=== PATIENT | male | born 1995 | race Caucasian/White ===

== ENCOUNTER 2023-10-16 20:04 | Emergency (ER) | payer SELFPAY ==
[2023-10-16 20:09] VITALS: BP 137/80; PULSE 110; RESP 16; TEMP 37.2; O2SAT 97; BMI 40.7
--- NOTE | 2023-10-16 20:18 | PC.NURSE ---
Area of concern started at top and inside buttock crack and extends into the lower back and to the right. Area red, raised and firm to the touch.
[2023-10-16 20:20] VITALS: O2SAT 97
--- NOTE | 2023-10-16 20:41 | ED.GENADUL1 ---
HPI - General Adult General Chief complaint: Skin/Abscess/Foreign Body Stated complaint: ABSCESS Time Seen by Provider: 10/16/23 20:10 Source: patient Mode of arrival: walk-in History of Present Illness HPI narrative: 28-year-old male with a history of pilonidal abscess presents today with recurrence. Patient states several years ago he had the surgical procedure try to prevent further recurrences. States she's had three or four since that time. States this episode began about three or four days ago. He has a 4 x 5 cm area of fluctuance superior to the buttock crease. Recent afebrile. He does not appear toxic. Related Data Previous Rx's Medication Instructions Recorded cephalexin 500 mg capsule 500 mg PO BID 10 days #20 caps 10/16/23 sulfamethoxazole 800 1 tab PO Q12H 10 days #20 tabs 10/16/23 mg-trimethoprim 160 mg tablet (Bactrim DS) Allergies Allergy/AdvReac Type Severity Reaction Status Date / Time No Known Drug Allergies Allergy Verified 10/16/23 20:13 Review of Systems ROS Narrative All Systems are negative except as noted/marked. Exam Narrative Exam Narrative: Nurses note and vital signs reviewed and patient is not hypoxic. General: The patient appears well and in no apparent distress. Patient is resting comfortably on cart. Skin: Warm, dry, no pallor noted. 4 x 5 cm area of fluctuance consistent with pilonidal abscess Head: Normocephalic, atraumatic Back: non-tender, no CVA tenderness bilaterally to percussion. GI: Normal bowel sounds, no tenderness to palpation, no masses appreciated. No rebound, guarding, or rigidity noted. Musculoskeletal: The patient has no evidence of calf tenderness, no pitting edema, symmetrical pulses noted bilaterally Neurological: A&O x4, normal speech Psychiatric: Cooperative Constitutional Vital Signs, click to edit/add: Last Vital Signs Temp 98.9 F 10/16/23 20:09 Pulse 110 H 10/16/23 20:09 Resp 16 10/16/23 20:09 BP 137/80 10/16/23 20:09 Pulse Ox 97 10/16/23 20:20 O2 Del Method Room Air 10/16/23 20:20 Course Vital Signs Vital signs: Vital Signs Temperature 98.9 F 10/16/23 20:09 Pulse Rate 110 H 10/16/23 20:09 Respiratory Rate 16 10/16/23 20:09 Blood Pressure 137/80 10/16/23 20:09 Pulse Oximetry 97 10/16/23 20:09 Oxygen Delivery Method Room Air 10/16/23 20:09 Temperature 98.9 F 10/16/23 20:09 Pulse Rate 110 H 10/16/23 20:09 Respiratory Rate 16 10/16/23 20:09 Blood Pressure 137/80 10/16/23 20:09 Pulse Oximetry 97 10/16/23 20:20 Oxygen Delivery Method Room Air 10/16/23 20:20 Medical Decision Making MDM Narrative Medical decision making narrative: [age] room and presented here with chief complaint of pilonidal abscess. Incision and drained was performed. CBC BMP wound cultures were obtained. Patient had a 4 x 5 cm area of fluctuance. Area was anesthetized with one percent lidocaine solution locally. Betadine was used to clean and prep the area. Small incision with eleven blade was used to open the area just above the buttock crease. Wound was then probed with forceps. Copious amount of purulent foul-smelling discharge was expressed from the area. Area was irrigated with Hibiclens normal saline. Wound was then packed loosely with quarter-inch packing. Pressure dressing ABD dressing was applied by nursing staff.She tolerated procedure well Patient states he is driving back to [place] tomorrow morning. His mom and family members are nurses and no hot to remove packing and repack the area. Patient repack the area on the next 24-48 hours. He then states he has a trip to [place] to go scuba diving next week. Patient was have advised not to do so as he could develop an infection or worsening infection to the area which could cause sepsis and even . Patient verbalized understanding agrees with plan of care. Patient was medicated here with IV vancomycin 1 g. Patient denied any for pain medicine. He'll be given prescription for Bactrim and Keflex. Sent to [facility] pharmacy. Medical Records Medical records reviewed: Yes I reviewed the patient's medical records Lab Data Lab results reviewed: Yes I reviewed the patient's lab results Labs: Lab Results 10/16/23 Range/Units 20:37 WBC 10.0 (4.0-11.0) 10^3/uL RBC 4.41 L (4.70-6.10) 10^6/uL Hgb 13.0 L (14.0-18.0) g/dL Hct 39.5 L (42.0-54.0) % MCV 89.6 (80.0-94.0) fL MCH 29.5 (25.9-34.0) pg MCHC 32.9 (29.9-35.2) g/dL RDW 12.5 (11.0-15.0) % Plt Count 98 L (150-450) 10^3/uL MPV 12.8 (9.5-13.5) fL Neut % (Auto) 68.3 (43.0-75.0) % Lymph % (Auto) 18.0 L (20.5-60.0) % [place] % (Auto) 10.6 (1.7-12.0) % Eos % (Auto) 2.4 (0.9-7.0) % Baso % (Auto) 0.3 (0.2-2.0) % Neut # (Auto) 6.8 H (1.4-6.5) 10^3/uL Lymph # (Auto) 1.8 (1.2-3.8) 10^3/uL [place] # (Auto) 1.1 H (0.3-0.8) 10^3/uL Eos # (Auto) 0.2 (0.0-0.7) 10^3/uL Baso # (Auto) 0.0 (0.0-0.1) 10^3/uL Abs Immat Gran (auto) 0.04 H (0.00-0.03) 10^3/uL Imm/Tot Granulo (auto) 0.4 (0.0-0.5) % Sodium 140 (136-145) mmol/L Potassium 4.0 (3.5-5.1) mmol/L Chloride 106 (98-107) mmol/L Carbon Dioxide 28.2 (21.0-32.0) mmol/L Anion Gap 9.8 BUN 19.0 H (7.0-18.0) mg/dL Creatinine 1.10 (0.70-1.30) mg/dL Est GFR ( Amer) >60 (>=60) Est GFR (Non-Af Amer) >60 (>=60) BUN/Creatinine Ratio 17.3 Glucose 98 (74-106) mg/dL Calcium 9.0 (8.5-10.1) mg/dL Total Bilirubin 0.4 (0.2-1.0) mg/dL AST 34 (15-37) U/L ALT 151 H (16-63) U/L Alkaline Phosphatase 53 (46-116) U/L Total Protein 6.9 (6.4-8.2) g/dL Albumin 3.4 (3.4-5.0) g/dL Globulin 3.5 g/dL Albumin/Globulin Ratio 1.0 Discharge Plan Discharge Chief Complaint: Skin/Abscess/Foreign Body Clinical Impression: Pilonidal abscess Patient Disposition: Home, Self-Care Time of Disposition Decision: 21:17 Condition: Good Prescriptions / Home Meds: New cephalexin 500 mg capsule 500 mg PO BID 10 Days Qty: 20 0RF sulfamethoxazole-trimethoprim [Bactrim DS] 800-160 mg tablet 1 tab PO Q12H 10 Days Qty: 20 0RF Instructions: Abscess (ED), Pilonidal Cyst Excision (DC) Stand Alone Forms: Portal Instructions Referrals: BRAIN GOMEZ [Primary Care Provider] - 1 week
[2023-10-16 20:42] LABS: Basophils Percent Auto 0.3 % (0.2-2.0); Eosinophils Absolute Auto 0.2 10^3/uL (0.0-0.7); Eosinophils Percent Auto 2.4 % (0.9-7.0); Hematocrit 39.5 % (42.0-54.0); Immature Granulocytes Abs Auto 0.04 10^3/uL (0.00-0.03); Immature Granulocytes Pct Auto 0.4 % (0.0-0.5); Lymphocytes Absolute Auto 1.8 10^3/uL (1.2-3.8); Mean Corpuscular HGB Conc 32.9 g/dL (29.9-35.2); Mean Corpuscular Hemoglobin 29.5 pg (25.9-34.0); Mean Corpuscular Volume 89.6 fL (80.0-94.0); Mean Platelet Volume 12.8 fL (9.5-13.5); Monocytes Absolute Auto 1.1 10^3/uL (0.3-0.8); Monocytes Percent Auto 10.6 % (1.7-12.0); Neutrophils Absolute Auto 6.8 10^3/uL (1.4-6.5); Neutrophils Percent Auto 68.3 % (43.0-75.0); Platelet Count 98 10^3/uL (150-450); Red Blood Count 4.41 10^6/uL (4.70-6.10); Red Cell Distribution Width 12.5 % (11.0-15.0)
[2023-10-16] MEDS: ONDANSETRON PF 4 MG/2 ML VIAL IV (20:46)
[2023-10-16] MEDS: KETOROLAC TROMETHAMINE 30 MG/ML VIAL IVP (20:46)
[2023-10-16] MEDS: LIDOCAINE HCL 1% 100 MG/10 ML MDV INJ (20:46)
[2023-10-16 20:56] LABS: Alanine Aminotransferase 151 U/L (16-63); Albumin Level 3.4 g/dL (3.4-5.0); Alkaline Phosphatase 53 U/L (46-116); Anion Gap 9.8; Aspartate Amino Transferase 34 U/L (15-37); BUN Creatinine Ratio 17.3; Bilirubin Total 0.4 mg/dL (0.2-1.0); Carbon Dioxide 28.2 mmol/L (21.0-32.0); Chloride 106 mmol/L (98-107); Estimated GFR (African America >60 (>=60); Estimated GFR (Non-African Ame >60 (>=60); Globulin 3.5 g/dL; Glucose 98 mg/dL (74-106); Sodium 140 mmol/L (136-145); Total Protein 6.9 g/dL (6.4-8.2)
--- NOTE | 2023-10-16 21:20 | PC.NURSE ---
I&D complete by PA at bedside, moderate amount of drainage removed. Area cleansed and wound packed. Sterile dry dressing in place. Pt reports draining this area by himself in the past and familiar with this process.
[2023-10-16] MEDS: VANCOMYCIN HCL 1,000 MG in 0.9 % SODIUM CHLORIDE 250 ML 250 MG IV (21:25)
== END 2023-10-16 22:50 | disposition home or self-care (01) ==
PROVIDERS: Physician Assistant; Emergency Provider Emergency Medicine; PCP Family Medicine
DX: L05.01 Pilonidal cyst with abscess (principal)
CPT/HCPCS: 10080; 36415; 80053; 85025; 87070; 87150; 87186; 96365; 96375; 99284; J3370